=== PATIENT | female | born 1955 | race African-American/Black ===

== ENCOUNTER → 2017-10-29 | Outpatient (CLI) | payer BC ==
--- NOTE | 2017-10-29 17:02 | Diagnostic Imaging Report ---
PROCEDURE:X-RAY BARIUM ENEMA WITH AIR CONTRAST COMPARISON:None. INDICATIONS:INCOMPLETE COLONOSCOPY, COLON CANCER SCREENING TECHNIQUE:After counter former view was obtained, an air contrast barium enema examination was performed in the usual manner. FINDINGS: Product Demonstrator view of the abdomen demonstrates extensive air throughout the large bowel from colonoscopy. No pneumatosis or free air. No dilated small bowel loops. A clip in the pelvis suggestive of tubal ligation. COLON: Barium opacified the majority of the colonic segments. The cecum and terminal ileum could not be completely filled due to marked patient discomfort. There is no evidence of stricture, polyp, intraluminal mass, or annular constricting mass in the visualized portions. There is suggestion of a diverticulum in the distal ascending/proximal transverse colon but this is identified only one image. The sigmoid colon and splenic flexure are redundant. OTHER:Negative. CONCLUSION: Compromised study due to marked patient discomfort. Potential diverticulum in the distal ascending/proximal transverse colon. Consider complete evaluation of the colon with CT colonography. Dictated by: Dakotah Cox M.D. on 10/29/2017 at 17:02 Electronically approved by: Dakotah Cox M.D. on 10/29/2017 at 17:02
== END | disposition home or self-care (01) ==
LOC: DX 11:32
PROVIDERS: ATTEND Internal Medicine Gastroenterology
DX: Z12.11 Encounter for screening for malignant neoplasm of colon (principal)
CPT/HCPCS: 74280